=== PATIENT | male | born 1960 | race Caucasian/White ===

== ENCOUNTER 2016-11-11 17:51 | Emergency (ER) | payer OTHER ==
[~2016-11-11 17:51] MED LIST: ATIVAN0.5 MG PO; CERTAGEN1 EACH PO; COLACE100 MG PO; DULERA INH; NORCO 7.5-3251 EACH PO; NORFLEX100 MG PO; PROVENTIL HFA6.7 GM INH; VENTOLIN (2.5 MG/3 M NEB; VITAMIN E PO; ZESTRIL10 MG PO; ZOFRAN4 MG PO
== END 2016-11-11 22:23 | disposition home or self-care (01) ==
LOC: FER 17:51
DX: S29.011A Strain of muscle and tendon of front wall of thorax, initial encounter (principal); J44.9 Chronic obstructive pulmonary disease, unspecified; I10 Essential (primary) hypertension; M81.0 Age-related osteoporosis without current pathological fracture; F17.210 Nicotine dependence, cigarettes, uncomplicated; Z99.81 Dependence on supplemental oxygen; Z88.2 Allergy status to sulfonamides; Z91.041 Radiographic dye allergy status; Z79.899 Other long term (current) drug therapy; X50.1XXA Overexertion from prolonged static or awkward postures, initial encounter
CPT/HCPCS: 71020; 71100; 96372; J1885; J2270; J2930

== ENCOUNTER 2020-07-10 13:11 | Emergency (ER) | payer OTHER ==
[~2020-07-10 13:11] MED LIST changes: +ASPIRIN CHEWABL81 MG PO; +ASPIRIN EC81 MG PO; +AZITHROMYCIN250 MG PO; +BEVESPI AEROS10.7 GM INH; +BROMFED DM COU473 ML PO; +BROMPHENIR-PSE118 ML PO; +BUPROPION XL300 MG PO; +CETIRIZINE HCL10 MG PO; +COREG 6.25MG6.25 MG PO; +DALIRESP500 MCG PO; +FLEXERIL10 MG PO; +GABAPENTIN300 MG PO; +IMDUR 30MG TABL30 MG PO; +IRON325 M1 PO; +KLONOPIN0.5 MG PO; +LASIX20 MG PO; +LEVAQUIN500 MG PO; +LEVAQUIN750 MG PO; +LOPRESSOR25 MG PO; +NEURONTIN300 MG PO; +OMEPRAZOLE40 MG PO; +PERCOCET 5-3251 EACH PO; +PERCOCET 7.5/321 TAB PO; +PREDNISONE 10MG10 MG PO; +PREDNISONE20 MG PO; +PROLIA60 MG/1 ML SC; +RANOLAZINE ER500 MG PO; +SENEXON-S TABL1 EACH PO; +VENTOLIN HFA IN18 GM INH
[2020-07-10 14:49] LABS: BASOPHIL 1.5 % (0-2); EOSINOPHIL 6.3 % (0-5); HCT 32.9 % (42.0-52.0); LYMPHOCYTE 24.8 % (15-48); MCH 25.6 pg (25.0-31.0); MCHC 30.4 g/dL (32.0-36.0); MCV 84.4 fL (78.0-100.0); MONOCYTE 13.9 % (0-12); MPV 9.8 fL (6.0-9.5); NEUTROPHIL 53.2 % (41-80); NRBC 0; PLT 542 K/uL (150-400); RDW 15.3 % (11.5-14.0); WBC 10.7 K/uL (4.0-10.5)
[2020-07-10 15:09] LABS: ALBUMIN 3.1 g/dL (3.4-5.0); BILIRUBIN - TOTAL 0.2 mg/dL (0.2-1.0); BUN/CREAT RATIO (CALC) 18.2 RATIO; CREATININE 0.77 mg/dL (0.67-1.17); GLOBULIN (CALCULATION) 4.5 g/dL; POTASSIUM 3.6 mmol/L (3.5-5.1); TOTAL PROTEIN 7.6 g/dL (6.4-8.2)
[2020-07-10 15:10] LABS: BILIRUBIN NEGATIVE (NEGATIVE); BLOOD NEGATIVE Ery/uL (NEGATIVE); CLARITY CLEAR (CLEAR); COLOR YELLOW (YELLOW); GLUCOSE (U) NORMAL (NORMAL); LEUKOCYTES TRACE Leu/uL (NEGATIVE); NITRITE NEGATIVE (NEGATIVE); PROTEIN NEGATIVE (NEGATIVE); SPECIFIC GRAVITY >=1.030 (1.001-1.030); UROBILINOGEN 0.2 mg/dL (0.2-1.0)
[2020-07-10 15:47] LABS: BACTERIA TRACE; MUCOUS MODERATE
[2020-07-10 16:11] LABS: CORONAVIRUS 2019 SARS-COV-2 NEGATIVE (NEGATIVE); INFLUENZA A NAA NEGATIVE (NEGATIVE)
== END 2020-07-10 17:10 | disposition home or self-care (01) ==
LOC: FER 13:11
PROVIDERS: Emergency Medicine
DX: J44.9 Chronic obstructive pulmonary disease, unspecified (principal); M47.814 Spondylosis without myelopathy or radiculopathy, thoracic region; E87.1 Hypo-osmolality and hyponatremia; I50.9 Heart failure, unspecified; F17.210 Nicotine dependence, cigarettes, uncomplicated; Z91.041 Radiographic dye allergy status; Z20.822 Contact with and (suspected) exposure to COVID-19
CPT/HCPCS: 36415; 71045; 80053; 81001; 85025; J1885; U0002

== ENCOUNTER 2020-10-24 10:48 | Emergency (ER) | payer OTHER ==
[2020-10-24 11:25] LABS: BASOPHIL 1.3 % (0-2); EOSINOPHIL 5.1 % (0-5); HCT 31.1 % (42.0-52.0); HGB 9.5 g/dl (13.2-18.0); LYMPHOCYTE 25.4 % (15-48); MCH 25.3 pg (25.0-31.0); MCHC 30.5 g/dL (32.0-36.0); MCV 82.7 fL (78.0-100.0); MONOCYTE 13.6 % (0-12); MPV 10.1 fL (6.0-9.5); NEUTROPHIL 53.5 % (41-80); NRBC 0; PLT 482 K/uL (150-400); RBC 3.76 M/uL (4.70-6.00); RDW 19.5 % (11.5-14.0); WBC 11.3 K/uL (4.0-10.5)
[2020-10-24 11:56] LABS: ALBUMIN 3.2 g/dL (3.4-5.0); BILIRUBIN - TOTAL 0.2 mg/dL (0.2-1.0); BUN/CREAT RATIO (CALC) 24.3 RATIO; CREATININE 0.7 mg/dL (0.67-1.17); GLOBULIN (CALCULATION) 4.2 g/dL; POTASSIUM 4.7 mmol/L (3.5-5.1); TOTAL PROTEIN 7.4 g/dL (6.4-8.2)
[2020-10-24] MEDS ORDERED: MEDROL 4MG DOSEP4 MG PO (12:30)
== END 2020-10-24 12:54 | disposition home or self-care (01) ==
LOC: FER 10:48
PROVIDERS: Emergency Medicine
DX: J44.1 Chronic obstructive pulmonary disease with (acute) exacerbation (principal); F17.200 Nicotine dependence, unspecified, uncomplicated; Z88.8 Allergy status to other drugs, medicaments and biological substances
CPT/HCPCS: 36415; 36600; 71045; 80053; 82803; 84484; 85025; 94640; 94664; 94762

== ENCOUNTER 2021-09-11 15:17 | Inpatient (IN) | payer OTHER ==
[~2021-09-11] VITALS: Ht 172.7 cm; Wt 71.7 kg
[~2021-09-11 15:17] MED LIST changes: +MEDROL 4MG DOSEP4 MG PO
[2021-09-11 16:43] LABS: BASOPHIL 0.4 % (0-2); EOSINOPHIL 1.5 % (0-5); HCT 28.6 % (42.0-52.0); HGB 8.8 g/dl (13.2-18.0); MCH 26.2 pg (25.0-31.0); MCHC 30.8 g/dL (32.0-36.0); MCV 85.1 fL (78.0-100.0); MONOCYTE 12.2 % (0-12); MPV 10.9 fL (6.0-9.5); NEUTROPHIL 75.4 % (41-80); NRBC 0; PLT 512 K/uL (150-400); RBC 3.36 M/uL (4.70-6.00); RDW 19.9 % (11.5-14.0); WBC 19.3 K/uL (4.0-10.5)
[2021-09-11 17:02] LABS: ALBUMIN 2.7 g/dL (3.4-5.0); BILIRUBIN - TOTAL 0.2 mg/dL (0.2-1.0); BUN/CREAT RATIO (CALC) 13.3 RATIO; CREATININE 2.63 mg/dL (0.67-1.17); GLOBULIN (CALCULATION) 5.2 g/dL; POTASSIUM 4.4 mmol/L (3.5-5.1); TOTAL PROTEIN 7.9 g/dL (6.4-8.2)
[2021-09-11 17:45] LABS: BILIRUBIN 1+ mg/dL (NEGATIVE); BLOOD 3+ Ery/uL (NEGATIVE); GLUCOSE (U) NORMAL (NORMAL); LEUKOCYTES TRACE Leu/uL (NEGATIVE); NITRITE NEGATIVE (NEGATIVE); PROTEIN 2+ mg/dL (NEGATIVE); SPECIFIC GRAVITY 1.025 (1.001-1.030); UROBILINOGEN 0.2 mg/dL (0.2-1.0); pH 5.5 (5.0-9.0)
[2021-09-11 17:48] LABS: CLARITY CLOUDY (CLEAR); COLOR BROWN (YELLOW)
[2021-09-11 17:53] LABS: BACTERIA 2+; RENAL EPITHELIAL CELLS RARE; URINARY RBC TNTC
[2021-09-11 17:54] LABS: GRANULAR CASTS TRACE
[2021-09-11 18:12] LABS: CORONAVIRUS 2019 SARS-COV-2 NEGATIVE (NEGATIVE); INFLUENZA A NAA NEGATIVE (NEGATIVE)
[2021-09-11 18:43] LABS: C-REACTIVE PROTEIN > 18.00 mg/dL (<=0.90); CPK 138 U/L (39-308)
[2021-09-11] MEDS ORDERED: HYDROCODON-ACE1 EAC2 PO (20:56)
[2021-09-11] MEDS ORDERED: GABAPENTIN600 MG PO (20:57)
[2021-09-11] MEDS ORDERED: RANEXA500 MG PO (20:59)
[2021-09-11] MEDS ORDERED: FLOMAX0.4 MG PO (21:00)
[2021-09-11] MEDS ORDERED: CARAFATE1 GM PO (21:01)
[2021-09-11] MEDS ORDERED: BACTRIM DS TAB1 EACH PO (21:02)
[2021-09-11] MEDS ORDERED: WELLBUTRIN XL150 MG PO (21:03)
[2021-09-11] MEDS ORDERED: DALIRESP500 MCG PO (21:05)
[2021-09-11] MEDS ORDERED: MULTIPLE VITAM1 EACH PO (21:06)
[2021-09-11] MEDS ORDERED: PROAIR HFA8.5 GM INH (21:08)
[2021-09-11] MEDS ORDERED: TRELEGY ELLIPT1 EAC1 INH (21:10)
--- NOTE | 2021-09-12 04:53 | NUR ---
MULTI ATTEMPTS (X6) TO CONTACT [facility] FOR MEDICATION APPROVAL, MULTI MESSAGE LEFT, PATIENT REQUESTING PAIN MEDICATION, OVER-RIDE COMPLETED FOR NORCO 5/325MG 1 TABLET PO PER WITNESS TO ADMINISTER TO PATIENT AT 0445. SUPERVIOR AWARE OF INABILITY TO CONTACT [facility] AT THIS TIME.
[2021-09-12 06:00] LABS: BASOPHIL 0.1 % (0-2); EOSINOPHIL 0 % (0-5); HCT 28.2 % (42.0-52.0); HGB 8.8 g/dl (13.2-18.0); MCH 26.3 pg (25.0-31.0); MCHC 31.2 g/dL (32.0-36.0); MCV 84.4 fL (78.0-100.0); MONOCYTE 0.9 % (0-12); MPV 10.7 fL (6.0-9.5); NRBC 0; PLT 503 K/uL (150-400); RBC 3.34 M/uL (4.70-6.00); RDW 19.8 % (11.5-14.0); WBC 15.6 K/uL (4.0-10.5)
[2021-09-12 06:18] LABS: NEUTROPHIL 92.3 % (41-80)
[2021-09-12 06:19] LABS: BUN 42 mg/dL (7-18); BUN/CREAT RATIO (CALC) 13.6 RATIO; C-REACTIVE PROTEIN > 18.00 mg/dL (<=0.90); CHLORIDE 98 mmol/L (98-107); CO2 (BICARBONATE) 30 mmol/L (21-32); CREATININE 3.09 mg/dL (0.67-1.17); GLUCOSE 236 mg/dL (74-106)
[2021-09-12 11:40] LABS: IRON % SATURATION 4.7 %SAT (20-50)
--- NOTE | 2021-09-12 20:16 | NUR ---
DR. BOURGEOIS CALLED AND REQUEST A PVR AND BC AFTER AND ANCHOR F/C IF OVER 300CC. PT VOID 350CC AND PVR WAS 510CC, PT REFUSED F/C. EDUCATED PT ON NEEDS AND PT DECLINED. DR BALDERAS. AT 1700 PT VOID 300CC AND PVR WAS 416CC. PT DECLINED AGAIN FOR F/C. DR. BALDERAS AGAIN.
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
[2021-09-13 07:58] LABS: CREATININE 3.41 mg/dL (0.67-1.17); POTASSIUM 4.2 mmol/L (3.5-5.1)
[2021-09-13 07:59] LABS: BASOPHIL 0.2 % (0-2); EOSINOPHIL 0.1 % (0-5); HCT 25.4 % (42.0-52.0); LYMPHOCYTE 6.2 % (15-48); MCH 26.1 pg (25.0-31.0); MCHC 31.5 g/dL (32.0-36.0); MCV 82.7 fL (78.0-100.0); MONOCYTE 6.4 % (0-12); MPV 10.8 fL (6.0-9.5); NEUTROPHIL 86.1 % (41-80); NRBC 0; PLT 527 K/uL (150-400); RBC 3.07 M/uL (4.70-6.00); RDW 19.9 % (11.5-14.0)
[2021-09-13 08:07] LABS: WBC 32.5 K/uL (4.0-10.5)
[2021-09-14 06:40] LABS: BASOPHIL 0.2 % (0-2); EOSINOPHIL 0.1 % (0-5); HCT 26.4 % (42.0-52.0); HGB 8.3 g/dl (13.2-18.0); LYMPHOCYTE 10.6 % (15-48); MCH 25.9 pg (25.0-31.0); MCHC 31.4 g/dL (32.0-36.0); MCV 82.5 fL (78.0-100.0); MONOCYTE 7.9 % (0-12); MPV 10.4 fL (6.0-9.5); NEUTROPHIL 79.9 % (41-80); NRBC 0; PLT 594 K/uL (150-400); RDW 20.4 % (11.5-14.0); WBC 22.4 K/uL (4.0-10.5)
[2021-09-14 07:01] LABS: CREATININE 2.86 mg/dL (0.67-1.17); PHOSPHORUS 3.2 mg/dL (2.6-4.7); POTASSIUM 4.3 mmol/L (3.5-5.1)
--- NOTE | 2021-09-14 12:47 | NUR ---
PER DEONTE WITH CARETENDERS , THE NURSE WILL ADMIT THE PT ON 09/17/21. HE WILL HAVE PT/OT. ALSO, [facility] DELIVERED A ROLLATOR RECOMMENDED BY PT. PLEASE CALL [facility] IF PT./ D/C HOME OVER WEEKEND.
[2021-09-14 16:24] LABS: BILIRUBIN NEGATIVE (NEGATIVE); BLOOD 3+ Ery/uL (NEGATIVE); CLARITY CLEAR (CLEAR); COLOR YELLOW (YELLOW); GLUCOSE (U) TRACE mg/dL (NORMAL); LEUKOCYTES NEGATIVE Leu/uL (NEGATIVE); NITRITE NEGATIVE (NEGATIVE); PROTEIN TRACE (LOW) mg/dL (NEGATIVE); SPECIFIC GRAVITY 1.015 (1.001-1.030); UROBILINOGEN 0.2 mg/dL (0.2-1.0); pH 5.5 (5.0-9.0)
[2021-09-14 16:35] LABS: BACTERIA 2+; SQUAMOUS EPITHELIAL CELLS RARE
[2021-09-14 17:12] LABS: URINE CREATININE 83.54 mg/dL (29.00-226.00); URINE TOTAL PROTEIN-RANDOM 42.1 mg/dL (<11.9)
[2021-09-15 06:21] LABS: BASOPHIL 0.4 % (0-2); EOSINOPHIL 0.1 % (0-5); HCT 28.6 % (42.0-52.0); HGB 8.9 g/dl (13.2-18.0); LYMPHOCYTE 15.8 % (15-48); MCH 25.9 pg (25.0-31.0); MCHC 31.1 g/dL (32.0-36.0); MCV 83.1 fL (78.0-100.0); MONOCYTE 10.2 % (0-12); MPV 10.2 fL (6.0-9.5); NEUTROPHIL 71.7 % (41-80); NRBC 0.1; PLT 672 K/uL (150-400); RBC 3.44 M/uL (4.70-6.00); RDW 20.6 % (11.5-14.0); WBC 18.4 K/uL (4.0-10.5)
[2021-09-15 06:41] LABS: BUN/CREAT RATIO (CALC) 24.3 RATIO; C-REACTIVE PROTEIN 3.9 mg/dL (<=0.90); CREATININE 2.63 mg/dL (0.67-1.17); POTASSIUM 4.4 mmol/L (3.5-5.1)
[2021-09-15] MEDS ORDERED: LOPRESSOR25 MG PO (10:18)
[2021-09-15] MEDS ORDERED: GABAPENTIN 100100 MG PO (10:18)
[2021-09-15] MEDS ORDERED: LEVAQUIN750 MG PO (10:18)
[2021-09-15] MEDS ORDERED: MAG-OXIDE 400M400 MG PO (10:18)
[2021-09-15] MEDS ORDERED: LASIX20 MG PO (10:18)
[2021-09-15] MEDS ORDERED: PREDNISONE 20MG20 MG PO (10:18)
[2021-09-15] MEDS ORDERED: FLORANEX TABLE1 EACH PO (10:18)
[2021-09-18 16:12] LABS: ANTIMYELOPEROXIDASE (MPO) ABS <9.0 U/mL (0.0-9.0); ANTIPROTEINASE 3 (PR-3) ABS <3.5 U/mL (0.0-3.5); ATYPICAL PANCA <1:20 titer (Neg:<1:20); PERINUCLEAR (P-ANCA) <1:20 titer (Neg:<1:20)
== END 2021-09-15 11:25 | disposition home or self-care (01) | DRG 682 ==
LOC: FER 15:17 → FMS 17:48
PROVIDERS: Emergency Medicine; Internal Medicine Nephrology; ADMIT Family Medicine
DX: N17.9 Acute kidney failure, unspecified (principal); I50.33 Acute on chronic diastolic (congestive) heart failure; J18.9 Pneumonia, unspecified organism; J96.20 Acute and chronic respiratory failure, unspecified whether with hypoxia or hypercapnia; J44.1 Chronic obstructive pulmonary disease with (acute) exacerbation; N41.0 Acute prostatitis; J44.0 Chronic obstructive pulmonary disease with (acute) lower respiratory infection; N30.01 Acute cystitis with hematuria; L03.312 Cellulitis of back [any part except buttock and flank]; N14.1 Nephropathy induced by other drugs, medicaments and biological substances; T36.8X5A Adverse effect of other systemic antibiotics, initial encounter; N18.9 Chronic kidney disease, unspecified; N40.1 Benign prostatic hyperplasia with lower urinary tract symptoms; R33.8 Other retention of urine; Z20.822 Contact with and (suspected) exposure to COVID-19; D50.9 Iron deficiency anemia, unspecified; L98.9 Disorder of the skin and subcutaneous tissue, unspecified; B96.89 Other specified bacterial agents as the cause of diseases classified elsewhere; Z90.5 Acquired absence of kidney; Z88.6 Allergy status to analgesic agent; Z91.041 Radiographic dye allergy status; Z99.81 Dependence on supplemental oxygen; Z79.899 Other long term (current) drug therapy; Z98.890 Other specified postprocedural states; Z87.891 Personal history of nicotine dependence
CPT/HCPCS: 36415; 36600; 71045; 71250; 80048; 80053; 81001; 82550; 82570; 82728; 82803; 83036; 83520; 83540; 83550; 83605; 83880; 84100; 84145; 84156; 84300; 84484; 85025; 86038; 86060; 86140; 86160; 86225; 86256; 87040; 87088; 93005; 94010; 94640; 94664; 94760; 94762; 97162; 97165; 97530; 97530-GP; 97535; J0696; J1940; J1956; J2916; J2930; J7050; J7512; U0002